=== PATIENT | male | born 1980 | race Caucasian/White ===

== ENCOUNTER 2018-03-13 00:08 | Emergency (ER) | payer OTHER ==
--- NOTE | 2018-03-13 01:38 | ED ---
Head Injury - HPI Summary HPI Summary: 37-year-old male presents with head injury today. He has some drinks at the bar and fell onto the posterior aspect of his head. No loss conscious. No nausea and vomiting. No dizziness. Has laceration to the back of skull. Tetanus up-to-date. No active bleeding. No neck pain. No other injury. He has contusion noted to the posterior aspect of his skull. Is not on blood thinners. He is refusing anything besides laceration closure. - History Of Current Complaint Chief Complaint: EDHeadInjury Stated Complaint: HEAD INJURY Time Seen by Provider: 03/13/18 00:53 Pain Intensity: 0 - Allergies/Home Medications Allergies/Adverse Reactions: Allergies Allergy/AdvReac Type Severity Reaction Status Date / Time Penicillins Allergy Rash Verified 03/13/18 00:16 Home Medications: Home Medications NK [No Home Medications Reported] 03/13/18 [History Confirmed 03/13/18] PMH/Surg Hx/FS Hx/Imm Hx Endocrine/Hematology History: Denies: Hx Anticoagulant Therapy Cardiovascular History: Denies: Hx Myocardial Infarction Infectious Disease History: No Infectious Disease History: Denies: Traveled Outside the [place] in Last 30 Days - Family History Known Family History: Negative: Blood Disorder - Social History Alcohol Use: Occasionally Substance Use Type: Reports: None Smoking Status (MU): Current Some Day Smoker Review of Systems Negative: Fever Negative: Chest Pain Negative: Shortness Of Breath Positive: Other - scalp laceration Positive: Headache All Other Systems Reviewed And Are Negative: Yes Physical Exam Triage Information Reviewed: Yes Vital Signs On Initial Exam: Initial Vitals Temp Pulse Resp BP Pulse Ox 98.1 F 51 16 122/77 98 03/13/18 00:16 03/13/18 00:16 03/13/18 00:16 03/13/18 00:16 03/13/18 00:16 Vital Signs Reviewed: Yes Appearance: Positive: Well-Appearing Skin: Positive: Warm, Dry, Other - 3 cm by half centimeter stellate laceration to posterior aspect scalp Head/Face: Positive: Normal Head/Face Inspection, Other - No step off, raccoon eyes, lubin sign Eyes: Positive: Normal, EOMI, RUBY, Conjunctiva Clear ENT: Positive: Normal ENT inspection, Pharynx normal, TMs normal Neck: Positive: Other: - Nontender neck full range of motion neck Respiratory/Lung Sounds: Positive: Clear to Auscultation, Breath Sounds Present Cardiovascular: Positive: Normal, RRR Musculoskeletal: Positive: Normal Neurological: Positive: Sensory/Motor Intact, Alert, Oriented to Person Place, Time, CN Intact II-III Psychiatric: Positive: Normal - Magdalena Coma Scale Best Eye Response: 4 - Spontaneous Best Motor Response: 6 - Obeys Commands Best Verbal Response: 5 - Oriented Coma Scale Total: 15 Procedures - Laceration/Wound Repair head Location: head Description: Stellate Anesthesia: Local, 1.0%, Epi Length, Depth and Shape: 3 cm by half centimeter stellate laceration Irrigated w/ Saline (ccs): 200 Laceration/Wound Explored: no foreign body removed Closure: Dick #__ - 4 Diagnostics - Vital Signs Vital Signs Temp Pulse Resp BP Pulse Ox 03/13/18 00:16 98.1 F 51 16 122/77 98 - Laboratory Lab Statement: Any lab studies that have been ordered have been reviewed, and results considered in the medical decision making process. Head Injury Course/Dx Course Of Treatment: 37-year-old male presents with head injury today. He has some drinks at the bar and fell onto the posterior aspect of his head. No loss conscious. No nausea and vomiting. No dizziness. Has laceration to the back of skull. Tetanus up-to-date. No active bleeding. No neck pain. No other injury. He has contusion noted to the posterior aspect of his skull. Is not on blood thinners. He is refusing anything besides laceration closure. On exam normal neuro exam. Cleaned the laceration which is stellate and placed 4 sutures. Has a friend who watch over him. Warning signs return to ED for. Patient's friend understands agrees with plan. - Diagnoses Differential Diagnosis/HQI/PQRI: Concussion Without LOC, Contusion, Intracranial Bleed, Laceration Provider Diagnoses: Head injury, Scalp laceration Discharge - Sign-Out/Discharge Documenting (check all that apply): Discharge/Admit/Transfer - Discharge Plan Condition: Good Disposition: HOME Patient Education Materials: Head Injury (ED), Staple Care (ED) Referrals: No Primary Care Phys,NOPCP [Primary Care Provider] - Additional Instructions: Take Tylenol or ibuprofen for pain every 6 hours as needed Do not scrub staple area Return to ED, urgent care or primary in 7-10 days to have dick removed Follow up with primary within 5 days Return to ED if develop persistent vomit or any new or worsening symptoms - Billing Disposition and Condition Condition: GOOD Disposition: Home
[2018-03-13 01:53] VITALS: BP 121/66
== END 2018-03-13 01:52 | disposition home or self-care (01) ==
LOC: ED 00:08
DX: S09.90XA Unspecified injury of head, initial encounter (principal); S01.01XA Laceration without foreign body of scalp, initial encounter; W18.30XA Fall on same level, unspecified, initial encounter; Y93.89 Activity, other specified; Y92.89 Other specified places as the place of occurrence of the external cause; R51 Headache; Z88.0 Allergy status to penicillin; Z72.0 Tobacco use
CPT/HCPCS: 12002; 99282